=== PATIENT | male | born 1955 | race Caucasian/White ===

== ENCOUNTER → 2016-12-22 | Outpatient (CLI) | payer BC ==
[~2016-12-22] MED LIST: ALLEGRA60 MG PO; HYDROCODONE1 TABLET PO; LEVAQUIN500 MG PO; PREVACID 30MG C30 M1 PO
--- NOTE | 2016-12-22 18:53 | RADIOLOGY REPORT PS360 ---
CT SINUS (MAX-FACIAL W/O CONT) CLINICAL INDICATION: CHRONIC MAXILIARY SINUSITIS ORDERING PHYSICIAN: Sav Huitron MD PATIENT AGE: 61 years COMPARISON: None TECHNIQUE:Axial, sagittal, and coronal images are generated and reviewed without contrast FINDINGS: Mild mucosal thickening is present of the ethmoid sinuses with moderate to severe mucosal thickening of the maxillary sinuses bilaterally left more severe than right.. The right ostiomeatal complex is patent. Left ostiomeatal complex is occluded by mucus and/or edema. The mucosa of the turbinates is shrunken bilaterally. The sphenoid and frontal sinuses are unremarkable. No mastoid effusion. There is mild leftward nasal septal deviation with a prominent septal spur projecting toward the left. The spur measures approximately 6 mm in width. The orbits have an unremarkable appearance as do the TMJs. IMPRESSION: 1. Moderate to severe bilateral maxillary sinus disease. See above for detail 2. Leftward nasal septal deviation with prominent septal spur projecting toward the left.
== END ==
LOC: RAD 15:03
DX: J32.0 Chronic maxillary sinusitis (principal)